=== PATIENT | male | born 1935 | race Caucasian/White ===

== ENCOUNTER 2021-01-31 13:38 | Emergency (ER) | payer OTHER, MEDICARE ==
[2021-01-31 15:11] LABS: BLOOD UREA NITROGEN,BUN 18 mg/dL (7.0-18.0); CARBON DIOXIDE,CO2 29.1 mmol/L (21.0-32.0); CHLORIDE,CL 104 mmol/L (98-107); GLUCOSE RANDOM 157 mg/dL (74-106); POTASSIUM,K 3.8 mmol/L (3.5-5.1); SODIUM,NA 142 mmol/L (136-148)
--- NOTE | 2021-01-31 16:35 | CT ---
INDICATION: Hematochezia. TECHNIQUE: CT abdomen and pelvis with intravenous contrast, 100 mL of Isovue-370. Coronal and sagittal formats. COMPARISON: CT 10/30/2020. FINDINGS: Imaged lower lungs demonstrate moderate emphysema and areas of subpleural scarring. Cardiomegaly with heavy coronary artery calcifications. Partially imaged sternotomy wires. Normal liver contour. No suspicious hepatic lesion. Heterogeneous attenuation throughout the portal venous system, favor mixing artifact. Mild biliary prominence is status post cholecystectomy. The pancreas, spleen, and adrenals are unremarkable. Symmetric renal enhancement. Bilateral renal cysts. Hyperattenuating lesion arising from the left upper kidney appears unchanged in size from CT 10/13/2019, compatible with a hyperdense cyst on noncontrast enhanced imaging. No hydronephrosis bilaterally. Unremarkable urinary bladder. Prostatomegaly. Scattered colonic diverticulosis with probable intraluminal contrast extravasation arising from the proximal descending colon (axial images 41-47 and coronal images 59-62). Remainder of the bowel appears normal in caliber and enhancement. Status post aorto bi-iliac endovascular repair. 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 Diffuse demineralization. Status post left total hip arthroplasty. Advanced multilevel lumbar spondylosis with mild dextrocurvature. IMPRESSION: 1. Apparent intraluminal contrast extravasation arising from the proximal descending colon is concerning for active hemorrhage, likely a diverticular bleed. 2. 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 Case discussed with Dr. Reid on 01/31/2021 at 4:30 p.m. Dictated by Roque Xiao MD @ 01/31/2021 4:33:04 PM Please note that all CT scans at this facility use dose modulation, iterative reconstruction, and/or weight-based dosing when appropriate to reduce radiation dose to as low as reasonably achievable. Dictated by: Roque Xiao MD @ 01/31/2021 16:34:12 (Electronically Signed)
--- NOTE | 2021-01-31 17:21 | EDM.PDOC ---
ED HPI GENERAL MEDICAL PROBLEM - General Chief Complaint: Genitourinary Problem Stated Complaint: BLOODY STOOL, BACK PAIN Time Seen by Provider: 01/31/21 13:50 - History of Present Illness INITIAL COMMENTS - FREE TEXT/NARRATIVE: CHIEF COMPLAINT(S): Bloody stool HISTORY OF PRESENT ILLNESS: This is a 85-year-old man with a past medical history of diverticulitis status post bowel resection, CABG, diabetes mellitus, COPD, BPH who comes to the emergency department with a chief complaint of bloody stool. The patient states that prior to arrival he had one large bloody bowel movement which was bright red. He states that he does have a history of hemorrhoids but denies this amount of bleeding with his prior hemorrhoidal bleeding. He denies any rectal itching, abdominal pain, nausea or vomiting. He denies any hematemesis or bilious emesis. He denies any melena. He states that he is concerned because of his prior diverticulitis. He denies any fever, chills, chest pain, shortness of breath, cough, runny nose or congestion. He denies any pain at all whatsoever. REVIEW OF SYSTEMS: Constitutional: Denies fever, chills. Eyes: Denies eye pain Ears, Nose, Mouth, & Throat: Denies earache Cardiovascular: Denies chest pain Respiratory: Denies shortness of breath Gastrointestinal: Positive for rectal bleeding. Denies Nausea, vomiting, diarrhea, hematochezia. Genitourinary: Denies hematuria, dysuria, penile discharge Skin:Denies a rash MSK: Denies joint pain Neurological: Denies blurred vision Psychiatric: Denies depression PAST MEDICAL HISTORY: As per history of present illness and as reviewed below otherwise noncontributory. SURGICAL HISTORY: As per history of present illness and as reviewed below otherwise noncontributory. SOCIAL HISTORY: As per history of present illness and as reviewed below othe rwise noncontributory. FAMILY HISTORY: As per history of present illness and as reviewed below otherwise noncontributory. EXAMINATION OF ORGAN SYSTEMS/BODY AREAS: Constitutional: Blood pressure is 151/84, heart rate 90, respiratory rate 18 with an oxygen saturation 93% on room air. Temperature 36.1. General: Elderly man who does not appear to be in acute distress. Psychiatric: Appropriate mood and affect. Eyes: No scleral icterus or conjunctival erythema ENMT: Moist mucous membranes. No pharyngeal erythema Cardiovascular: Regular, rate, and rhythm. No gallops, murmurs, or rubs. Bilateral upper extremity pulses symmetric and intact. No peripheral edema. No JVD. Respiratory: Lungs clear to auscultation bilaterally. No wheezes, rales, or rhonchi. Gastrointestinal: Soft, non-tender, non-distended. Normoactive bowel sounds no rebound or guarding. Rectal examination performed with RN manager data warehousing in presence. There is no active rectal bleeding. Stool was brown mixed with bright red blood. Guaiac positive. Genitourinary: No suprapubic tenderness Musculoskeletal: Normal range of motion. Skin: No lesions or abrasions. Neurological: Alert, GCS 15 MEDICAL DECISION MAKING AND COURSE IN THE ED WITH INTERPRETATION/REVIEW OF DIAGNOSTIC STUDIES: This is a 85-year-old man with a past medical history of diverticulitis status post bowel resection, CABG, diabetes mellitus, COPD, BPH who comes to the emergency department with a chief complaint of bloody stool who is guaiac positive and bright red stool. At this time we did place the patient on cardiac monitoring and pulse oximetry. threat monitoring analyst did reveal sinus rhythm and pulse oximetry with good waveform was 94% on room air. At this time will obtain CBC, CMP, INR, type and screen. Patient's vitals are currently s table we will hold off until CT for further interventions. We will obtain a CT abdomen pelvis with IV contrast given his history. Laboratory: CBC reveals a hemoglobin of 17 and hematocrit of 50.4 and thrombocytopenia at 108 otherwise unremarkable. INR is normal. CMP reveals hyperglycemia at 152 and elevated total bilirubin at 1.2. Type and screen is a positive, antibody negative The radiological images were viewed by myself along with reading the report from the radiologist. CT abdomen pelvis with contrast reveals moderate emphysema and areas of subpleural scarring. Scattered colonic diverticulosis with probable intramural contrast extravasation arising from the proximal descending colon concerning for active diverticular bleed. Unchanged 2 x 6 x 2.4 cm mild splenic artery aneurysm with peripheral calcification. There is a hyperattenuating lesion arising from the left upper kidney appears unchanged from prior CT. After imaging I did discuss blood transfusion with the patient given the active GI bleeding. The patient did have a large bloody bowel movement on my reevaluation which was bloody. We will type and cross the patient for 2 units. We did obtain a Covid swab. At this time I did discuss them that we would need to transfer him for further intervention given the GI bleed. He was amenable to this plan. The patient is not on any anticoagulation therefore no reversal agents are needed at this time. The patient's vital signs on repeat were stable. I contacted [facility] in [place] and spoke with Dr. Pereira who stated that although he could intervene on this active GI bleed there is no hospital beds at this time and no capability for the patient to be cared for. Therefore at this time I did contact [facility] in [place] and spoke with the GI physician Dr. Renteria who recommended transfer and I also spoke with Dr. John who accepted the patient for transfer and admission. Laboratory: Covid is negative DISPOSITION: The patient was transferred to [facility] in stable yet serious condition CONDITION: Serious PROCEDURES: Cardiac monitoring interpretation, pulse oximetry interpretation FINAL IMPRESSION(S)/DIAGNOSES: 1. Acute active diverticular bleeding in the proximal descending colon Michele Reid M.D. Critical Care Procedure Note Authorized and performed by: Michele Reid M.D. Critical Care Time: 41 minutes Due to a high probability of clinically significant, life threatening deterioration, the patient required my highest level of preparedness to intervene emergently and I personally spent this critical care time directly and personally managing the patient. This critical care time included obtaining a history, examining the patient, pulse oximetry; ordering and review of studies; arranging urgent treatment with development of a management plan; evaluation of a patients reponse to treatment; frequent assessment; and discussions with other providers. This critical care time was performed to assess and manage the high probability of imminent, life threatening deterioration that could result in multiorgan failure. It was exclusive of separate billable procedures and treating other patients. Please see MDM section and rest of the note for further information on patient assessment and treatment. Please see MDM section and rest of the note for further information on patient assessment and treatment. Treatments FRONT OFFICE SPEC: Reports: Aspirin, Other (see below) Other Treatments FRONT OFFICE SPEC: pt reports two 325mg aspirin pills this morning - Related Data Allergies Allergy/AdvReac Type Severity Reaction Status Date / Time gabapentin Allergy Hives Verified 01/31/21 13:51 lisinopril Allergy Facial Verified 01/31/21 13:51 Swelling Home Meds: Home Meds Albuterol Sulfate [Albuterol Sulfate Hfa] 2 inh IH Q6H PRN 01/31/21 [History] Alogliptin Benzoate [Alogliptin] 25 mg PO DAILY 01/31/21 [History] Diclofenac Sodium [Arthritis Pain] 4 gm TOP QID 01/31/21 [History] Furosemide 40 mg PO DAILY 01/31/21 [History] Insulin Glarg,Human.Rec.Analog [Lantus] 23 unit SUBCUT BEDTIME 01/31/21 [History] Lipase/Protease/Amylase [Roni Paulson 36,000 Units Capsule] 36,000 unit PO TIDMEALS 01/31/21 [History] Metoprolol Succinate 100 mg PO DAILY 01/31/21 [History] Omeprazole 40 mg PO ACBREAKFAST 01/31/21 [History] Potassium Chloride [Klor-Con M20] 20 meq PO BIDMEALS 01/31/21 [History] Tamsulosin [Flomax] 0.4 mg PO DAILY 01/31/21 [History] Tiotropium [place] [Spiriva Respimat] 2 inh IH DAILY 01/31/21 [History] atorvaSTATin [Lipitor] 10 mg PO BEDTIME 01/31/21 [History] cilostazoL [Cilostazol] 100 mg PO DAILY 01/31/21 [History] metFORMIN HCl [Metformin ER Osmotic] 1,000 mg PO WITHBREAKFAST 01/31/21 [History] Past Medical History HEENT History: Reports: None Cardiovascular History: Reports: CAD, High Cholesterol, Hypertension, PVD Respiratory History: Reports: COPD Gastrointestinal History: Reports: Diverticulosis, Irritable Bowel Syndrome Genitourinary History: Reports: None Musculoskeletal History: Reports: Back Pain, Chronic Neurological History: Reports: TIA Psychiatric History: Reports: None Endocrine/Metabolic History: Reports: Diabetes, Type II Hematologic History: Reports: None Immunologic History: Reports: None Oncologic (Cancer) History: Reports: Basal Cell Carcinoma Dermatologic History: Reports: None - Infectious Disease History Infectious Disease History: Reports: Chicken Pox, Measles, Mumps - Past Surgical History Head Surgeries/Procedures: Reports: None HEENT Surgical History: Reports: Cataract Surgery Cardiovascular Surgical History: Reports: AAA Repair Respiratory Surgical History: Reports: None GI Surgical History: Reports: Appendectomy, Cholecystectomy, Hernia, Inguinal Male Surgical History: Reports: None Endocrine Surgical History: Reports: None Neurological Surgical History: Reports: C-Spine Musculoskeletal Surgical History: Reports: Hip Replacement Oncologic Surgical History: Reports: None Dermatological Surgical History: Reports: None Social & Family History - Family History Family Medical History: No Pertinent Family History - Tobacco Use Tobacco Use Status *Q: Current Every Day Tobacco User Years of Tobacco use: 70 Packs/Tins Daily: 1 - Caffeine Use Caffeine Use: Reports: None - Recreational Drug Use Recreational Drug Use: No ED ROS GENERAL - Review of Systems Review Of Systems: See Below ED EXAM, GENERAL - Physical Exam Exam: See Below Course - Vital Signs Last Recorded V/S: Last Vital Signs Temp 36.6 C 01/31/21 17:45 Pulse 90 01/31/21 17:45 Resp 18 01/31/21 17:45 BP 171/87 H 01/31/21 17:45 Pulse Ox 94 L 01/31/21 17:45 - Orders/Labs/Meds Orders: Active Orders 24 hr Category Date Time Status RED BLOOD CELLS LP [BBK] Stat Lab 01/31/21 14:33 Results TYPE AND SCREEN [BBK] Stat Lab 01/31/21 14:33 Results Transfuse Red Blood Cells [COMM] Stat Oth 01/31/21 16:49 Ordered Labs: Laboratory Tests 01/31/21 01/31/21 01/31/21 Range/Units 14:29 14:29 14:29 WBC 7.66 (4.0-11.0) K/uL RBC 5.63 (4.50-5.90) M/uL Hgb 17.0 (13.0-17.0) g/dL Hct 50.4 H (38.0-50.0) % MCV 89.5 (80.0-98.0) fL MCH 30.2 (27.0-32.0) pg MCHC 33.7 (31.0-37.0) g/dL RDW Std Deviation 53.5 (28.0-62.0) fl RDW Coeff of Beatriz 16 H (11.0-15.0) % Plt Count 108 L (150-400) K/uL MPV 11.40 (7.40-12.00) fL Neut % (Auto) 63.1 (48.0-80.0) % Lymph % (Auto) 27.9 (16.0-40.0) % [place] % (Auto) 7.7 (0.0-15.0) % Eos % (Auto) 1.0 (0.0-7.0) % Baso % (Auto) 0.3 (0.0-1.5) % Neut # (Auto) 4.8 (1.4-5.7) K/uL Lymph # (Auto) 2.1 (0.6-2.4) K/uL [place] # (Auto) 0.6 (0.0-0.8) K/uL Eos # (Auto) 0.1 (0.0-0.7) K/uL Baso # (Auto) 0.0 (0.0-0.1) K/uL Nucleated RBC % 0.0 /100WBC Nucleated RBCs # 0 K/uL INR 1.06 Sodium 142 (136-148) mmol/L Potassium 3.8 (3.5-5.1) mmol/L Chloride 104 (98-107) mmol/L Carbon Dioxide 29.1 (21.0-32.0) mmol/L BUN 18 (7.0-18.0) mg/dL Creatinine 1.0 (0.8-1.3) mg/dL Est Cr Clr Drug Dosing 64.55 mL/min Estimated GFR (MDRD) > 60.0 ml/min Glucose 157 H (74-106) mg/dL Calcium 8.8 (8.5-10.1) mg/dL Total Bilirubin 1.2 H (0.2-1.0) mg/dL AST 16 (15-37) IU/L ALT 27 (14-63) IU/L Alkaline Phosphatase 100 (46-116) U/L Total Protein 6.8 (6.4-8.2) g/dL Albumin 3.4 (3.4-5.0) g/dL Globulin 3.4 (2.6-4.0) g/dL Albumin/Globulin Ratio 1.0 (0.9-1.6) SARS-CoV-2 RNA (JESSE) (NEGATIVE) Blood Type Antibody Screen Crossmatch 01/31/21 01/31/21 01/31/21 Range/Units 14:33 16:43 17:11 WBC 7.75 (4.0-11.0) K/uL RBC 5.44 (4.50-5.90) M/uL Hgb 16.4 (13.0-17.0) g/dL Hct 48.9 (38.0-50.0) % MCV 89.9 (80.0-98.0) fL MCH 30.1 (27.0-32.0) pg MCHC 33.5 (31.0-37.0) g/dL RDW Std Deviation 54.2 (28.0-62.0) fl RDW Coeff of Beatriz 16 H (11.0-15.0) % Plt Count 105 L (150-400) K/uL MPV 10.60 (7.40-12.00) fL Neut % (Auto) (48.0-80.0) % Lymph % (Auto) (16.0-40.0) % [place] % (Auto) (0.0-15.0) % Eos % (Auto) (0.0-7.0) % Baso % (Auto) (0.0-1.5) % Neut # (Auto) (1.4-5.7) K/uL Lymph # (Auto) (0.6-2.4) K/uL [place] # (Auto) (0.0-0.8) K/uL Eos # (Auto) (0.0-0.7) K/uL Baso # (Auto) (0.0-0.1) K/uL Nucleated RBC % 0.0 /100WBC Nucleated RBCs # 0 K/uL INR Sodium (136-148) mmol/L Potassium (3.5-5.1) mmol/L Chloride (98-107) mmol/L Carbon Dioxide (21.0-32.0) mmol/L BUN (7.0-18.0) mg/dL Creatinine (0.8-1.3) mg/dL Est Cr Clr Drug Dosing mL/min Estimated GFR (MDRD) ml/min Glucose (74-106) mg/dL Calcium (8.5-10.1) mg/dL Total Bilirubin (0.2-1.0) mg/dL AST (15-37) IU/L ALT (14-63) IU/L Alkaline Phosphatase (46-116) U/L Total Protein (6.4-8.2) g/dL Albumin (3.4-5.0) g/dL Globulin (2.6-4.0) g/dL Albumin/Globulin Ratio (0.9-1.6) SARS-CoV-2 RNA (JESSE) NEGATIVE (NEGATIVE) Blood Type A POSITIVE Antibody Screen NEGATIVE Crossmatch See Detail Departure - Departure Time of Disposition: 17:55 Disposition: DC/Tfer to [facility] 02 Condition: Serious Clinical Impression: Acute GI bleeding - Discharge Information Referrals: Chetan Bales [facility] [Primary Care Provider] - Forms: ED Department Discharge Sepsis Event Note (ED) - Evaluation Sepsis Screening Result: No Definite Risk - Focused Exam Vital Signs: Vital Signs Temp Pulse Resp BP Pulse Ox 01/31/21 17:45 36.6 C 90 18 171/87 H 94 L 01/31/21 17:31 36.6 C 82 18 157/78 H 94 L 01/31/21 17:20 36.6 C 84 18 170/110 H 94 L 01/31/21 17:05 36.8 C 81 18 152/78 H 94 L 01/31/21 16:44 36.8 C 88 18 172/115 H 96 01/31/21 16:16 36.8 C 81 18 144/77 H 92 L 01/31/21 15:40 82 18 143/74 H 94 L 01/31/21 14:59 36.8 C 80 18 126/71 94 L 01/31/21 13:52 36.1 C 90 18 151/84 H 93 L - My Orders Last 24 Hours: My Active Orders 01/31/21 14:33 RED BLOOD CELLS LP [BBK] Stat TYPE AND SCREEN [BBK] Stat 01/31/21 16:49 Transfuse Red Blood Cells [COMM] Stat - Assessment/Plan Last 24 Hours: My Active Orders 01/31/21 14:33 RED BLOOD CELLS LP [BBK] Stat TYPE AND SCREEN [BBK] Stat 01/31/21 16:49 Transfuse Red Blood Cells [COMM] Stat
== END 2021-01-31 18:00 ==
LOC: MW.ED 13:38
DX: K57.31 Diverticulosis of large intestine without perforation or abscess with bleeding (principal); J44.9 Chronic obstructive pulmonary disease, unspecified; E11.9 Type 2 diabetes mellitus without complications; I25.10 Atherosclerotic heart disease of native coronary artery without angina pectoris; E78.00 Pure hypercholesterolemia, unspecified; I10 Essential (primary) hypertension; Z95.1 Presence of aortocoronary bypass graft; Z20.822 Contact with and (suspected) exposure to COVID-19; Z88.5 Allergy status to narcotic agent; Z88.8 Allergy status to other drugs, medicaments and biological substances; Z79.899 Other long term (current) drug therapy; Z79.4 Long term (current) use of insulin; Z86.73 Personal history of transient ischemic attack (TIA), and cerebral infarction without residual deficits; Z72.0 Tobacco use
CPT/HCPCS: 36415; 74177; 80053; 85025; 85027; 85610; 86850; 86900; 86901; 86920; 86921; 86922; 87635; 99291; P9016; U0002